=== PATIENT | female | born 2000 | race African-American/Black ===

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

== ENCOUNTER 2020-03-03 12:45 | Emergency (ER) | payer OTHER ==
[2020-03-03] MEDS ORDERED: LIDOCAINE HCL 2% (50ML VIAL) SQ ONE (12:59)
[2020-03-03] MEDS ORDERED: LIDOCAINE HCL 2% (20ML MULTI-DOSE VIAL) ONE (13:00)
[2020-03-03 13:11] VITALS: BP 110/68; PULSE 110; TEMP 98.2; BMI 28.1
--- NOTE | 2020-03-03 13:44 | PDOC ---
History of Present Illness - General Chief Complaint: Abscess Boil Stated Complaint: ABSCESS Time Seen by Provider: 03/03/20 12:59 History Source: Patient Exam Limitations: No Limitations - History of Present Illness Initial Comments: 03/03/20 13:41 19-year-old female currently 8 weeks G2, P1 here today with complaints of a pilonidal cyst. Patient states she has had this several times at least 5 times in the past has had a difficult time following up with surgery for definitive treatment due to insurance reasons. Has been having pain in the upper buttock area for approximately 1 week denies any fevers or chills pain is become severe to the point where she came in today for I&D Past History - Medical History Allergies/Adverse Reactions: Allergies Allergy/AdvReac Type Severity Reaction Status Date / Time No Known Allergies Allergy Verified 03/03/20 12:57 Home Medications: Ambulatory Orders Ascorbic Acid 500 mg PO DAILY 03/03/20 Cephalexin [Keflex] 500 mg PO TID #21 capsule 03/03/20 Pnv,Calcium 72/Iron,Carb/Folic [ Plus Iron Tablet] 1 each PO DAILY 03/03/20 Anemia: Yes Asthma: Yes COPD: No GI Disorders: No Other medical history: PILONIDAL CYST - Reproductive History Is Patient Now?: Yes - Immunization History Immunization Up to Date: Yes - Psycho-Social/Smoking History Smoking Status: No Smoking History: Never smoked Have you smoked in the past 12 months: No Number of Cigarettes Smoked Daily: 0 - Substance Abuse Hx (Audit-C & DAST Scrn) How often the patient has a drink containing alcohol: Never Score: In Men: 4 or > Positive; In Women: 3 or > Positive: 0 Screen Result (Pos requires Nsg. Audit-10AR): Negative In the last yr the pt used illegal drug/Rx for NonMed reason: No Score: Yes response is considered Positive: 0 Screen Result (Positive result requires Nsg. DAST-10): Negative Review of Systems - Review of Systems Constitutional: No: Chills, Fever Respiratory: No: Cough, Shortness of Breath Cardiac (ROS): No: Chest Pain ABD/GI: No: Nausea, Vomiting : No: Burning, Dysuria, Discharge Musculoskeletal: No: Back Pain Integumentary: Yes: Lesions, Other (abscess) All Other Systems: Reviewed and Negative *Physical Exam - Vital Signs Last Vital Signs Temp Pulse Resp BP Pulse Ox 98.2 F 110 H 18 110/68 100 03/03/20 12:46 03/03/20 12:46 03/03/20 12:46 03/03/20 12:46 03/03/20 12:46 - Physical Exam 03/03/20 13:43 Awake alert no acute distress lungs are clear bilaterally heart is regular 30 murmurs rubs or gallops abdomen is soft and nontender remedies are warm well perfused. Examination of skin reveals a large 2 x 3 inch area of swelling and scarring in the supragluteal cleft along the midline likely pilonidal abscess Procedures - Incision and Drainage I&D Site: Bilateral: Buttock (pilonidal) Betadine cleansed: No Anesthesia: 2% Lidocaine Volume(ml): 6 Blade Size: 11 Iodinated Packin/ in Complications: none Dressing: Yes Progress: 03/03/20 13:49 30 mL purulent material drained ED Treatment Course - Medications Given in the ED: ED Medications Discontinued Medications Generic Name Dose Route Start Last Admin Trade Name [employer] PRN Reason Stop Dose Admin Lidocaine HCl 10 mg 03/03/20 12:59 03/03/20 13:05 Xylocaine 2% SQ 03/03/20 13:00 10 mg ONCE ONE Administration Medical Decision Making - Medical Decision Making 03/03/20 13:43 19-year-old female currently G2, P1 at 8 weeks with a pilonidal abscess. I&D was performed approximately 30 cc of purulence was expressed ultrasound was used for guidance of drainage tolerated well 2% lidocaine without epi for anesthesia packing was placed with a dressing. Evaluation of the baby demonstrated 8-week 4-day fetus with heart rate and movement heart rate measured 157 bpm Patient will be discharged home with a referral for Dr. Wang, also given a prescription for keflex to be taken twice daily x1 week told to leave packing in place until return for removal in 48hours and then should start soaking in the tub twice daily 03/03/20 13:49 Discharge - Discharge Information Problems reviewed: Yes Clinical Impression/Diagnosis: Pilonidal abscess, Condition: Improved Disposition: HOME - Admission No - Additional Discharge Information Prescriptions: Cephalexin [Keflex] 500 mg PO TID #21 capsule - Follow up/Referral Referrals: Calista Ferrari MD [Primary Care Provider] - Jonathon Wang MD [Staff Physician] - - Patient Discharge Instructions Patient Printed Discharge Instructions: DI for Incision and Drainage of a Skin Abscess, Pilonidal Cyst Additional Instructions: you should take keflex 500 mg three times daily x one week. follow up wtih a general surgeon for definitive treatement of your recurrent abscess. leave packing in place for 48 hours, then you should followup here for a repeat wound evaluation and packing removal. return for any problems or concerns .you can take tylenol 500 mg every 6 hours for pain while . do not take ibuprofen. follow up with your ob/ towel distributor for routine care, you should take a vitamin. - Post Discharge Activity
== END 2020-03-03 13:51 | disposition home or self-care (01) ==
LOC: FER 12:45
PROC: 0J990ZZ Drainage of Buttock Subcutaneous Tissue and Fascia, Open Approach (ICD-10-PCS; principal; 2020-03-03)
DX: L02.31 Cutaneous abscess of buttock (principal)
CPT/HCPCS: 99283-25

== ENCOUNTER 2020-11-24 02:03 | Emergency (ER) | payer OTHER ==
[2020-11-24] MEDS ORDERED: LIDO 2%/EPI 1:200000 PRESRVFRE (20 ML SDVIAL) ONE (02:12)
[2020-11-24] MEDS ORDERED: LIDO 2%/EPI 1:200000 PRESRVFRE (20 ML SDVIAL) INF ONE (02:12)
[2020-11-24 02:14] VITALS: BP 123/89; PULSE 119; TEMP 100.4; BMI 32.9
[2020-11-24] MEDS ORDERED: CEPHALEXIN MONOHYDRATE 500 MG CAPSULE (UD) ONE (02:18)
[2020-11-24] MEDS ORDERED: CEPHALEXIN MONOHYDRATE 500 MG CAPSULE (UD) PO ONE (02:18)
[2020-11-24] MEDS ORDERED: ACETAMINOPHEN 500 MG TABLET (FP) PO ONE (02:47)
[2020-11-24] MEDS ORDERED: IBUPROFEN 600 MG TABLET (FP) PO ONE ×2 (02:47→02:48)
[2020-11-24] MEDS ORDERED: ACETAMINOPHEN 325 MG TABLET (FP) ONE (02:48)
== END 2020-11-24 02:51 | disposition home or self-care (01) ==
LOC: FER 02:03
PROC: 0H98XZZ Drainage of Buttock Skin, External Approach (ICD-10-PCS; principal; 2020-11-24)
DX: L05.01 Pilonidal cyst with abscess (principal)
CPT/HCPCS: 99284-25

== ENCOUNTER 2021-05-12 06:50 | Emergency (ER) | payer OTHER ==
[2021-05-12 07:04] VITALS: BP 120/87; PULSE 108; TEMP 99.4; BMI 31.8
[2021-05-12] MEDS ORDERED: LIDOCAINE 1%/EPI 1:100000 (20 ML MULTI DOSE VIAL) INF ONE (07:19)
[2021-05-12] MEDS ORDERED: LIDOCAINE 2%/EPINEPHRINE 1:100000 (50 ML MD VIAL) INF ONE (07:22)
== END 2021-05-12 08:15 | disposition home or self-care (01) ==
LOC: FER 06:50
PROC: 0H98XZZ Drainage of Buttock Skin, External Approach (ICD-10-PCS; principal; 2021-05-12)
DX: L05.91 Pilonidal cyst without abscess (principal)
CPT/HCPCS: 10060; 99283-25

== ENCOUNTER 2021-08-20 03:30 | Emergency (ER) | payer OTHER ==
[2021-08-20 03:45] VITALS: BP 110/75; PULSE 81; TEMP 97.6; BMI 30.2
[2021-08-20] MEDS ORDERED: KETOROLAC TROMETHAMINE 15 MG/ML VIAL IM ONE (04:20)
[2021-08-20] MEDS ORDERED: KETOROLAC TROMETHAMINE 30 MG/1 ML VIAL ONE (05:40)
== END 2021-08-20 05:57 | disposition home or self-care (01) ==
LOC: JER 03:30
PROC: 3E023GC Introduction of Other Therapeutic Substance into Muscle, Percutaneous Approach (ICD-10-PCS; principal; 2021-08-20)
DX: R07.89 Other chest pain (principal)
CPT/HCPCS: 71046-TC-FY; 99284-25

== ENCOUNTER 2022-02-03 12:04 | Emergency (ER) | payer OTHER ==
[2022-02-03 12:20] VITALS: BP 112/69; PULSE 93; RESP 18; TEMP 97.9; BMI 34.5
== END 2022-02-03 13:09 | disposition home or self-care (01) ==
LOC: FER 12:04
PROC: 0H9JXZZ Drainage of Left Upper Leg Skin, External Approach (ICD-10-PCS; principal; 2022-02-03)
DX: L02.416 Cutaneous abscess of left lower limb (principal)
CPT/HCPCS: 99282-25

== ENCOUNTER 2022-04-15 12:54 | Emergency (ER) | payer OTHER ==
[2022-04-15 13:16] VITALS: BP 117/78; PULSE 103; RESP 18; TEMP 98.1; BMI 32.5
[2022-04-15] MEDS ORDERED: IBUPROFEN 400 MG TABLET (FP) PO ONE (14:41)
[2022-04-15] MEDS ORDERED: IBUPROFEN 600 MG TABLET (FP) PO ONE (15:17)
== END 2022-04-15 15:27 | disposition left against medical advice (07) ==
LOC: JER 12:54
DX: L02.31 Cutaneous abscess of buttock (principal)
CPT/HCPCS: 99283-25

== ENCOUNTER 2022-04-15 16:10 | Emergency (ER) | payer OTHER ==
[2022-04-15 16:28] VITALS: BP 120/87; PULSE 116; RESP 18; TEMP 99.5; BMI 32.5
== END 2022-04-15 16:55 | disposition home or self-care (01) ==
LOC: FER 16:10
PROC: 0H98XZZ Drainage of Buttock Skin, External Approach (ICD-10-PCS; principal; 2022-04-15)
DX: L05.01 Pilonidal cyst with abscess (principal)
CPT/HCPCS: 99282-25

== ENCOUNTER 2022-10-24 00:52 | Emergency (ER) | payer OTHER ==
[2022-10-24 01:01] VITALS: BP 120/82; PULSE 110; RESP 18; TEMP 99.9; BMI 35.0
== END 2022-10-24 02:44 | disposition home or self-care (01) ==
LOC: FER 00:52
PROC: 0H98XZZ Drainage of Buttock Skin, External Approach (ICD-10-PCS; principal; 2022-10-24)
DX: L05.01 Pilonidal cyst with abscess (principal)
CPT/HCPCS: 99282-25

== ENCOUNTER 2023-07-06 16:47 | Emergency (ER) | payer OTHER ==
[2023-07-06 17:17] VITALS: BP 117/82; PULSE 96; RESP 16; TEMP 99.6; BMI 31.8
== END 2023-07-06 18:29 | disposition home or self-care (01) ==
LOC: FER 16:47
PROC: 0J990ZZ Drainage of Buttock Subcutaneous Tissue and Fascia, Open Approach (ICD-10-PCS; principal; 2023-07-06)
DX: L05.01 Pilonidal cyst with abscess (principal)
CPT/HCPCS: 10080; 87070; 87205; 99284-25

== ENCOUNTER 2024-04-05 10:16 | Emergency (ER) | payer OTHER ==
[2024-04-05 10:30] VITALS: BP 107/74; RESP 18; TEMP 98.4; BMI 34.4
[2024-04-05 11:10] VITALS: PULSE 97
== END 2024-04-05 11:10 | disposition home or self-care (01) ==
LOC: FER 10:16
PROC: 0J990ZZ Drainage of Buttock Subcutaneous Tissue and Fascia, Open Approach (ICD-10-PCS; principal; 2024-04-05)
DX: L05.01 Pilonidal cyst with abscess (principal)
CPT/HCPCS: 99283-25

== ENCOUNTER 2024-06-09 21:42 | Emergency (ER) | payer OTHER ==
[2024-06-09 21:55] VITALS: BP 116/68; PULSE 86; RESP 18; TEMP 98.4; BMI 33.6
[2024-06-09] MEDS ORDERED: PHENAZOPYRIDINE HCL 100 MG TABLET (FP) ONE (22:00)
[2024-06-09] MEDS: PHENAZOPYRIDINE HCL 100 MG TABLET (FP) PO ONE (22:22)
[2024-06-09] MEDS ORDERED: NITROFURANTOIN MONOHYD/M-CRYST 100 MG CAPSULE PO ONE (22:31)
[2024-06-09] MEDS: NITROFURANTOIN MACROCRYSTAL 50 MG CAPSULE (FP) PO SCH (22:40)
== END 2024-06-09 22:40 | disposition home or self-care (01) ==
LOC: FER 21:42
DX: N30.00 Acute cystitis without hematuria (principal); R30.0 Dysuria; R35.0 Frequency of micturition
CPT/HCPCS: 81003; 81015; 87086; 87186; 99283-25